=== PATIENT | female | born 1950 | race Caucasian/White ===

== ENCOUNTER 2021-04-26 07:26 | Day surgery (SDC) | payer MEDICARE, OTHER ==
[~2021-04-26 07:26] MED LIST: Lactated Ringers 1,000 ML IV SCH
[2021-04-26] MEDS ORDERED: Naloxone 0.4 MG/ML SDV IVPUSH PRN (07:30)
[2021-04-26] MEDS ORDERED: Metoclopramide 10 MG/2 ML SDV IVPUSH PRN (07:30)
[2021-04-26] MEDS ORDERED: Ondansetron 4 MG/2 ML SDV IVPUSH PRN (07:30)
[2021-04-26] MEDS ORDERED: HYDROmorphone 1 MG/ML Syringe IVPUSH PRN (07:30)
[2021-04-26] MEDS ORDERED: Morphine 4 MG/ML VIAL IVPUSH PRN (07:30)
[2021-04-26] MEDS ORDERED: Albuterol 0.083% 2.5 MG/3 ML Neb Soln NEB PRN (07:30)
[2021-04-26] MEDS ORDERED: ceFAZolin 1 GM in Premix Bag 1 BAG IV SCH (08:00)
[2021-04-26] MEDS ORDERED: fentaNYL 100 MCG/2 ML SDV ONE (08:25)
[2021-04-26] MEDS ORDERED: Propofol 200 MG/20 ML SDV ONE ×2 (08:25→09:07)
[2021-04-26] MEDS ORDERED: Lidocaine 1% 5 ML VIAL ONE (08:25)
[2021-04-26] MEDS ORDERED: Bupivacaine 0.25%/EPINEPHrine 1:200,000 10 ML SDV ONE (08:40)
[2021-04-26] MEDS ORDERED: Dexamethasone 4 MG/ML 5 ML MDV ONE (09:03)
[2021-04-26] MEDS ORDERED: ceFAZolin 1 GM Vial ONE (09:08)
[2021-04-26] MEDS ORDERED: Ketorolac 30 MG/ML SDV ONE (09:36)
[2021-04-26] MEDS ORDERED: Ondansetron 4 MG/2 ML SDV ONE (09:36)
[2021-04-26] MEDS ORDERED: ePHEDrine 50 MG/ML SDV ONE (09:40)
[2021-04-26] MEDS: fentaNYL 100 MCG/2 ML SDV IVPUSH PRN ×2 (10:13→10:20)
== END 2021-04-26 11:45 | disposition home or self-care (01) ==
LOC: MW.SDS 07:26
PROVIDERS: ATTEND Orthopaedic Surgery
DX: S83.241A Other tear of medial meniscus, current injury, right knee, initial encounter (principal); Z91.048 Other nonmedicinal substance allergy status; Z77.22 Contact with and (suspected) exposure to environmental tobacco smoke (acute) (chronic); Z79.899 Other long term (current) drug therapy; X58.XXXA Exposure to other specified factors, initial encounter
CPT/HCPCS: 29881; J0131; J0690; J1100; J1885; J2405; J2704; J3010; J3490; J7120; 01400; 99100